=== PATIENT | female | born 1935 | race African-American/Black ===

== ENCOUNTER 2024-03-16 10:28 | Inpatient (IN) | payer MEDICARE ==
[2024-03-16] MEDS ORDERED: Iopamidol 300 61% 100 ML VIAL FS ONE (11:30)
[2024-03-16 11:31] LABS: #Basophils 0.02 10x3/uL (0.0-0.2); #Eosinphils 0.16 10x3/uL (0.0-0.5); #Monocytes 0.55 10x3/uL (0.0-1.1); #Neutrophils 3.01 10x3/uL (1.5-8.4); %Basophils 0.4 % (0.0-2.0); %Eosinophils 3.1 % (0.0-6.0); %Lymphocytes 27.6 % (18.0-47.0); %Monocytes 10.6 % (0.0-10.0); %Neutrophils 57.9 % (40.0-75.0); Hematocrit 33.3 % (34.9-44.5); Hemoglobin 10.7 g/dL (12.0-15.5); Mean Corpuscular HGB CONC 32.1 g/dL (32.0-36.0); Mean Corpuscular Hemoglobin 28.2 pg (27.0-33.0); Mean Corpuscular Volume 87.6 fL (81.6-98.3); Mean Platelet Volume 12.7 fL (7.4-10.4); Platelet Count 256 10x3/uL (150-450); RBC Distribution Width 16.8 % (11.5-14.5); White Blood Cell (WBC) Count 5.2 10x3/uL (3.5-10.5)
[2024-03-16 11:44] LABS: ALT (SGPT) 8 U/L (8-55); AST (SGOT) 17 U/L (5-34); Albumin 3.1 g/dL (3.4-4.8); Alkaline Phosphatase 101 U/L (40-110); Anion Gap 18 mmol/L (10-20); BUN (Urea Nitrogen) 18 mg/dL (9.8-20.1); Bilirubin, Total 0.4 mg/dL (0.2-1.2); Calc. Creatinine Clearance 0 mL/min (70-130); Calcium 9.3 mg/dL (7.8-10.44); Carbon Dioxide 17 mmol/L (23-31); Chloride 108 mmol/L (98-107); Estimated GFR 57; Globulin 3.8 g/dL (2.4-3.5); Glucose 140 mg/dL (83-110); Lipase 21 U/L (8-78); Potassium 4.2 mmol/L (3.5-5.1); Protein, Total 6.9 g/dL (5.8-8.1); Sodium 139 mmol/L (136-145)
[2024-03-16] MEDS ORDERED: Cefepime 2 GM VIAL ONE (11:46)
[2024-03-16 11:48] LABS: Troponin I Less than 0.010 ng/mL (< 0.028)
[2024-03-16 14:30] LABS: Lactic Acid 1.7 mmol/L (0.5-2.2)
[2024-03-16 14:48] LABS: Bilirubin Neg (Negative); Blood, Urine 10 (Negative); Clarity Clear (Clear); Glucose, Urine (Dipstick) Normal (Negative); Ketone, Urine Negative (Negative); Leukocyte Negative (Negative); Nitrite Negative (Negative); Protein, Urine (Dipstick) Negative (Neg-Trace); Specific Gravity, Urine 1.015 (1.005-1.030); Urobilinogen Normal mg/dL (Less than 2)
[2024-03-16 15:20] LABS: Bacteria/HPF 2+ HPF (None Seen); CAUTI Indications for Culture Alt mental st,lethar; RBC/HPF 0-3 HPF (0-3); WBC/HPF 0-3 HPF (0-3); Yeast-Budding Rare HPF (None Seen)
[2024-03-16 15:22] LABS: Urine Culture Reflex No No
[2024-03-16] MEDS ORDERED: Senokot S 8.6-50 MG TAB PO PRN (16:48)
[2024-03-16] MEDS ORDERED: Acetaminophen 325 MG TAB PO PRN (16:48)
[2024-03-16 19:56] VITALS: BMI 41.1
[2024-03-16] MEDS: Sodium Chloride 0.9% 1,000 ML IV SCH (22:49)
[2024-03-16] MEDS: Cefepime 2 GM in Sodium Chloride 0.9% 100 ML IVPB SCH (23:49)
[2024-03-17 04:02] LABS: #Basophils 0.03 10x3/uL (0.0-0.2); #Eosinphils 0.14 10x3/uL (0.0-0.5); #Monocytes 0.67 10x3/uL (0.0-1.1); #Neutrophils 3.27 10x3/uL (1.5-8.4); %Basophils 0.5 % (0.0-2.0); %Eosinophils 2.5 % (0.0-6.0); %Lymphocytes 27.5 % (18.0-47.0); %Monocytes 11.8 % (0.0-10.0); %Neutrophils 57.3 % (40.0-75.0); Hematocrit 30.5 % (34.9-44.5); Hemoglobin 9.8 g/dL (12.0-15.5); Mean Corpuscular HGB CONC 32.1 g/dL (32.0-36.0); Mean Corpuscular Hemoglobin 28.3 pg (27.0-33.0); Mean Corpuscular Volume 88.2 fL (81.6-98.3); Mean Platelet Volume 12.7 fL (7.4-10.4); Platelet Count 194 10x3/uL (150-450); RBC Distribution Width 16.8 % (11.5-14.5); Red Blood Cell (RBC) Count 3.46 10x6/uL (3.90-5.03); White Blood Cell (WBC) Count 5.7 10x3/uL (3.5-10.5)
[2024-03-17 04:06] LABS: Vancomycin, Random 14.2 ug/mL (See Comment)
[2024-03-17 04:11] LABS: Anion Gap 14 mmol/L (10-20); BUN (Urea Nitrogen) 16 mg/dL (9.8-20.1); Calc. Creatinine Clearance 80 mL/min (70-130); Carbon Dioxide 16 mmol/L (23-31); Chloride 113 mmol/L (98-107); Estimated GFR 75; Glucose 100 mg/dL (83-110); Potassium 3.9 mmol/L (3.5-5.1); Sodium 139 mmol/L (136-145)
[2024-03-17] MEDS: Metoprolol Tartrate 25 MG TAB PO SCH (07:53)
[2024-03-17] MEDS: Potassium Chloride 10 MEQ TAB PO SCH (07:53)
[2024-03-17] MEDS: Aspirin Chewable 81 MG TAB PO SCH (07:53)
[2024-03-17] MEDS: Magnesium Oxide 400 MG TAB PO SCH (07:53)
[2024-03-17] MEDS: Calcium Carbonate 600 MG TAB PO SCH (08:30)
[2024-03-17] MEDS: Vancomycin 1 GM in Sodium Chloride 0.9% 250 ML 250 ML IVPB SCH (11:35)
[2024-03-17] MEDS ORDERED: ALPRAZolam 0.25 MG TAB PO PRN (13:17)
[2024-03-17] MEDS: Lidocaine 1% w/Epinephrine 1:200K 30 ML VIAL FS SCH (14:45)
[2024-03-17] MEDS: GoLYTELY 4,000 ml Bottle PO SCH (15:42)
[2024-03-17] MEDS: VANCOMYCIN 2 GRAM/400 ML BAG 2 GM in Premix 1 BAG IVPB SCH (19:32)
[2024-03-17] MEDS: Enoxaparin 100 MG (1 mL) SYRINGE SC SCH (21:06)
[2024-03-17] MEDS: dilTIAZem 25 MG/5 ML VIAL SLOW IVP SCH (21:48)
[2024-03-18 04:17] LABS: #Basophils 0.02 10x3/uL (0.0-0.2); #Eosinphils 0.15 10x3/uL (0.0-0.5); #Monocytes 0.61 10x3/uL (0.0-1.1); #Neutrophils 3.12 10x3/uL (1.5-8.4); %Basophils 0.4 % (0.0-2.0); %Eosinophils 2.9 % (0.0-6.0); %Lymphocytes 25.5 % (18.0-47.0); %Monocytes 11.6 % (0.0-10.0); %Neutrophils 59.2 % (40.0-75.0); Hematocrit 29.4 % (34.9-44.5); Hemoglobin 9.9 g/dL (12.0-15.5); Mean Corpuscular HGB CONC 33.7 g/dL (32.0-36.0); Mean Corpuscular Hemoglobin 28.9 pg (27.0-33.0); Mean Corpuscular Volume 85.7 fL (81.6-98.3); Mean Platelet Volume 13.2 fL (7.4-10.4); Platelet Count 199 10x3/uL (150-450); RBC Distribution Width 16.5 % (11.5-14.5); Red Blood Cell (RBC) Count 3.43 10x6/uL (3.90-5.03); White Blood Cell (WBC) Count 5.3 10x3/uL (3.5-10.5)
[2024-03-18 04:24] LABS: Anion Gap 16 mmol/L (10-20); BUN (Urea Nitrogen) 10 mg/dL (9.8-20.1); Calc. Creatinine Clearance 80 mL/min (70-130); Calcium 9.6 mg/dL (7.8-10.44); Carbon Dioxide 19 mmol/L (23-31); Chloride 108 mmol/L (98-107); Estimated GFR 75; Glucose 97 mg/dL (83-110); Iron 37 ug/dL (50-170); Iron Binding Capacity, Total 283 mcg/dL (265-497); Potassium 3.8 mmol/L (3.5-5.1); Sodium 139 mmol/L (136-145)
[2024-03-18 11:09] VITALS: BMI 41.1
[2024-03-18] MEDS ORDERED: PROPOFOL 20 ML ONE ×2 (14:35→14:56)
[2024-03-18] MEDS ORDERED: Lidocaine 1% PF 5 ML VIAL ONE (14:35)
[2024-03-18] MEDS: Polyethylene Glycol 3350 17 GM Packet PO SCH ×2 (17:55→20:36)
[2024-03-18] MEDS: Enoxaparin 100 MG (1 mL) SYRINGE SC SCH (20:36)
[2024-03-19 03:41] LABS: #Basophils 0.03 10x3/uL (0.0-0.2); #Eosinphils 0.18 10x3/uL (0.0-0.5); #Monocytes 0.53 10x3/uL (0.0-1.1); #Neutrophils 2.66 10x3/uL (1.5-8.4); %Basophils 0.7 % (0.0-2.0); %Eosinophils 3.9 % (0.0-6.0); %Monocytes 11.6 % (0.0-10.0); %Neutrophils 58.4 % (40.0-75.0); Hemoglobin 9.7 g/dL (12.0-15.5); Mean Corpuscular HGB CONC 33.4 g/dL (32.0-36.0); Mean Corpuscular Hemoglobin 28.6 pg (27.0-33.0); Mean Corpuscular Volume 85.5 fL (81.6-98.3); Mean Platelet Volume 12.7 fL (7.4-10.4); Platelet Count 200 10x3/uL (150-450); RBC Distribution Width 16.4 % (11.5-14.5); Red Blood Cell (RBC) Count 3.39 10x6/uL (3.90-5.03); White Blood Cell (WBC) Count 4.6 10x3/uL (3.5-10.5)
[2024-03-19 03:56] LABS: Anion Gap 14 mmol/L (10-20); BUN (Urea Nitrogen) 9 mg/dL (9.8-20.1); Calc. Creatinine Clearance 92 mL/min (70-130); Calcium 9.1 mg/dL (7.8-10.44); Carbon Dioxide 19 mmol/L (23-31); Chloride 108 mmol/L (98-107); Estimated GFR 85; Glucose 86 mg/dL (83-110); Potassium 3.4 mmol/L (3.5-5.1); Sodium 138 mmol/L (136-145)
[2024-03-19 04:59] VITALS: TEMP 98.5
[2024-03-19 07:43] VITALS: BP 124/57
[2024-03-19] MEDS: Metoprolol Tartrate 50 MG TAB PO SCH (08:59)
[2024-03-19] MEDS: Metoprolol Tartrate 5 MG (5 mL) VIAL IVP SCH (09:00)
[2024-03-19] MEDS ORDERED: Metamucil PACK PO SCH (09:00)
[2024-03-19] MEDS ORDERED: Metoprolol Tartrate 50 MG TAB PO SCH (21:00)
== END 2024-03-19 10:40 | disposition home health service (06) | DRG 607 ==
LOC: CSHERS 10:28 → CSHTELE 16:54
PROVIDERS: ADMIT Family Medicine; ATTEND Family Medicine
PROC: 0DBQXZX Excision of Anus, External Approach, Diagnostic (ICD-10-PCS; principal; 2024-03-17)
PROC: 0DBN8ZZ Excision of Sigmoid Colon, Via Natural or Artificial Opening Endoscopic (ICD-10-PCS; 2024-03-18)
PROC: 0DBQ8ZX Excision of Anus, Via Natural or Artificial Opening Endoscopic, Diagnostic (ICD-10-PCS; 2024-03-18)
DX: C44.520 Squamous cell carcinoma of anal skin (principal); E87.20 Acidosis, unspecified; K63.3 Ulcer of intestine; K61.0 Anal abscess; Z68.41 Body mass index [BMI] 40.0-44.9, adult; K57.30 Diverticulosis of large intestine without perforation or abscess without bleeding; K63.5 Polyp of colon; K62.89 Other specified diseases of anus and rectum; R00.1 Bradycardia, unspecified; K62.4 Stenosis of anus and rectum; E66.01 Morbid (severe) obesity due to excess calories; I48.91 Unspecified atrial fibrillation; Z79.2 Long term (current) use of antibiotics; Z79.899 Other long term (current) drug therapy
CPT/HCPCS: 36415; 71045; 74177; 80048; 80053; 80202; 81001; 82378; 82728; 83540; 83550; 83605; 83690; 84484; 85025; 87040; 87077; 87086; 87149; 88305; 93005; 93010; 93306; 96365; 96366; 96375; 97139; C1889; J0692; J1650; J2704; J3370; J3490; J7050; Q9967

== ENCOUNTER 2024-04-18 09:25 | Outpatient (CLI) | payer MEDICARE ==
[2024-04-18] MEDS ORDERED: Iopamidol 370 76% 100 ML VIAL ONE (10:54)
== END 2024-04-18 09:26 | disposition home or self-care (01) ==
LOC: CSHCT 09:25
PROVIDERS: ATTEND Internal Medicine Hematology & Oncology
DX: C80.1 Malignant (primary) neoplasm, unspecified (principal)
CPT/HCPCS: 71260; Q9967

== ENCOUNTER 2024-04-23 08:08 | Outpatient (CLI) | payer MEDICARE, OTHER | END 2024-04-23 08:09 | disposition home or self-care (01) | LOC: CSHWCC 08:08 | PROVIDERS: ATTEND Nurse Practitioner Family | DX: E11.622 Type 2 diabetes mellitus with other skin ulcer (principal); L98.499 Non-pressure chronic ulcer of skin of other sites with unspecified severity; C44.520 Squamous cell carcinoma of anal skin | CPT/HCPCS: 99204; G0463 ==

== ENCOUNTER 2024-06-21 11:07 | Emergency (ER) | payer MEDICARE ==
[2024-06-21] MEDS ORDERED: HYDROcodone/Acetaminophen 5/325 mg Tablet ONE (12:25)
[2024-06-21 12:30] LABS: #Basophils 0.02 10x3/uL (0.0-0.2); #Eosinphils 0.02 10x3/uL (0.0-0.5); #Monocytes 0.94 10x3/uL (0.0-1.1); #Neutrophils 4.98 10x3/uL (1.5-8.4); %Basophils 0.2 % (0.0-2.0); %Eosinophils 0.2 % (0.0-6.0); %Lymphocytes 26.2 % (18.0-47.0); %Monocytes 11.6 % (0.0-10.0); %Neutrophils 61.6 % (40.0-75.0); Hematocrit 35.2 % (34.9-44.5); Hemoglobin 11.8 g/dL (12.0-15.5); Mean Corpuscular HGB CONC 33.5 g/dL (32.0-36.0); Mean Corpuscular Hemoglobin 27.8 pg (27.0-33.0); Mean Corpuscular Volume 82.8 fL (81.6-98.3); Mean Platelet Volume 10.8 fL (7.4-10.4); Platelet Count 240 10x3/uL (150-450); RBC Distribution Width 18.3 % (11.5-14.5); Red Blood Cell (RBC) Count 4.25 10x6/uL (3.90-5.03); White Blood Cell (WBC) Count 8.1 10x3/uL (3.5-10.5)
[2024-06-21 12:46] LABS: ALT (SGPT) 11 U/L (8-55); AST (SGOT) 20 U/L (5-34); Albumin 2.6 g/dL (3.4-4.8); Alkaline Phosphatase 97 U/L (40-110); Anion Gap 17 mmol/L (10-20); BUN (Urea Nitrogen) 10 mg/dL (9.8-20.1); Bilirubin, Total 0.6 mg/dL (0.2-1.2); Calc. Creatinine Clearance 0 mL/min (70-130); Calcium 8.6 mg/dL (7.8-10.44); Carbon Dioxide 20 mmol/L (23-31); Chloride 103 mmol/L (98-107); Estimated GFR 73; Globulin 3.6 g/dL (2.4-3.5); Glucose 161 mg/dL (83-110); Potassium 4.3 mmol/L (3.5-5.1); Protein, Total 6.2 g/dL (5.8-8.1); Sodium 136 mmol/L (136-145)
[2024-06-21 12:50] LABS: Troponin I 0.017 ng/mL (< 0.028)
[2024-06-21] MEDS ORDERED: Cefepime 2 GM VIAL ONE (13:48)
[2024-06-21] MEDS ORDERED: Magnesium 2 GM/50 ML BAG (IN WATER) ONE (13:48)
[2024-06-21 14:09] LABS: Phosphorus 1.7 mg/dL (2.3-4.7)
[2024-06-21 16:05] LABS: Bilirubin Neg (Negative); Blood, Urine Negative (Negative); Clarity Clear (Clear); Glucose, Urine (Dipstick) Normal (Negative); Ketone, Urine Negative (Negative); Leukocyte 25 (Negative); Nitrite Negative (Negative); Protein, Urine (Dipstick) 30 mg/dl (Neg-Trace); Specific Gravity, Urine 1.025 (1.005-1.030)
[2024-06-21 16:15] LABS: CAUTI Indications for Culture Alt mental st,lethar; RBC/HPF None Seen HPF (0-3); WBC/HPF 0-3 HPF (0-3)
[2024-06-21 16:16] LABS: Bacteria/HPF 3+ HPF (None Seen); Mucous/LPF 2+ LPF (<2+); Urine Culture Reflex No No
[2024-06-21] MEDS ORDERED: Senokot S 8.6-50 MG TAB PO PRN (17:40)
[2024-06-21] MEDS ORDERED: Acetaminophen 325 MG TAB PO PRN (17:40)
[2024-06-21] MEDS ORDERED: Ondansetron PF 4 MG/2 ML Vial IVP PRN (17:40)
[2024-06-21] MEDS ORDERED: Calcium Carbonate 500 MG ChewTAB PO PRN (17:40)
[2024-06-21] MEDS ORDERED: Sodium Chloride 0.9% 1,000 ML IV SCH (17:59)
[2024-06-22] MEDS ORDERED: Enoxaparin 40 MG (0.4 mL) SYRINGE SC SCH (09:00)
== END 2024-06-21 16:51 | disposition short-term general hospital (02) ==
LOC: CSHERS 11:07
DX: A41.9 Sepsis, unspecified organism (principal); R41.82 Altered mental status, unspecified; I11.9 Hypertensive heart disease without heart failure; E11.9 Type 2 diabetes mellitus without complications; I48.91 Unspecified atrial fibrillation; Z79.01 Long term (current) use of anticoagulants; Z55.6 Problems related to health literacy
CPT/HCPCS: 70450; 71045; 80053; 81001; 82140; 83605; 83735; 83880; 84100; 84145; 84484; 85025; 87040; 93005; J0692; J3475; J7030; 36415

== ENCOUNTER 2024-09-25 07:56 | Outpatient (CLI) | payer MEDICARE ==
[2024-09-25] MEDS ORDERED: Iopamidol 300 61% 100 ML VIAL FS ONE (11:17)
== END 2024-09-25 07:57 | disposition home or self-care (01) ==
LOC: CSHCT 07:56
PROVIDERS: ATTEND Internal Medicine Hematology & Oncology
DX: C21.0 Malignant neoplasm of anus, unspecified (principal); C44.82 Squamous cell carcinoma of overlapping sites of skin; D50.0 Iron deficiency anemia secondary to blood loss (chronic); N89.9 Noninflammatory disorder of vagina, unspecified
CPT/HCPCS: 71260; 74177; Q9967